=== PATIENT | male | born 1995 | race Caucasian/White ===

== ENCOUNTER 2019-04-28 19:15 | Inpatient (IN) | payer MEDICARE, MEDICAID ==
[~2019-04-28] VITALS: Ht 167.6 cm; Wt 84.5 kg
[2019-04-28 20:37] LABS: BASOPHILS # (AUTO) 0.1 X10'3 (0-0.2); BASOPHILS % (AUTO) 0.3 % (0-1); EOSINOPHILS # (AUTO) 0.1 X10'3 (0-0.9); EOSINOPHILS % (AUTO) 0.5 % (0-6); HEMATOCRIT 49.1 % (42.0-52.0); HEMOGLOBIN 16.9 g/dl (14.0-17.9); LYMPHOCYTES # (AUTO) 0.9 X10'3 (1.1-4.8); LYMPHOCYTES % (AUTO) 5.2 % (21-51); MEAN CORPUSCULAR HEMOGLOBIN 31.1 PG (27.0-31.0); MEAN CORPUSCULAR HGB CONC 34.4 g/dL (33.0-36.5); MEAN CORPUSCULAR VOLUME 90.3 FL (78-98); MEAN PLATELET VOLUME 8.1 FL (7.4-10.4); MONOCYTES # (AUTO) 1.6 X10'3 (0-0.9); MONOCYTES % (AUTO) 8.8 % (2-12); NEUTROPHILS # (AUTO) 15.3 X10'3 (1.8-7.7); NEUTROPHILS % (AUTO) 85.2 % (42-75); PLATELET COUNT 243 X10'3 (140-440); RED BLOOD COUNT 5.44 X10'6 (4.70-6.10); RED CELL DISTRIBUTION WIDTH 12.5 % (11.5-14.5); WHITE BLOOD COUNT 17.9 X10'3 (4.5-11.0)
[2019-04-28] MEDS ORDERED: normal saline 1000ml 1,000 ML IV ONE (20:55)
[2019-04-28] MEDS ORDERED: clindamycin 600mg/D5W 50ml 50 ML IV ONE (20:55)
[2019-04-28] MEDS ORDERED: ketorolac trometh. 30mg/ml inj. IV ONE (20:55)
[2019-04-28 20:56] LABS: PARTIAL THROMBOPLASTIN TIME 33 SECONDS (22-32)
[2019-04-28 21:09] LABS: ALANINE AMINOTRANSFERASE 30 U/L (12-78); ALBUMIN 4.1 G/DL (3.4-5.0); ALBUMIN/GLOBULIN RATIO 0.9 (1.1-1.5); ALKALINE PHOSPHATASE 117 IU/L (46-116); ANION GAP 13 (8-16); ASPARTATE AMINO TRANSFERASE 15 U/L (10-37); BILIRUBIN,TOTAL 1.1 MG/DL (0.1-1.0); BLOOD UREA NITROGEN 11 MG/DL (7-18); BUN/CREATININE RATIO 12.6 (5.4-32.0); C-REACTIVE PROTEIN 16.34 MG/DL (0.0-0.5); CALCIUM 9.1 MG/DL (8.5-10.1); CHLORIDE 98 MMOL/L (99-107); CREATININE 0.87 MG/DL (0.60-1.10); GLUCOSE 86 MG/DL (70-104); POTASSIUM 3.3 MMOL/L (3.5-5.1); SODIUM 136 MMOL/L (135-145); TOTAL CARBON DIOXIDE 25.2 MMOL/L (24-32); TOTAL PROTEIN 8.7 G/DL (6.4-8.2); eGFR > 90 ML/MIN
[2019-04-28] MEDS ORDERED: colchicine 0.6mg tablet PO ONE (21:20)
[2019-04-28 21:22] LABS: MONOTEST NEGATIVE (Neg)
[2019-04-28] MEDS ORDERED: LORazepam 2 mg/ml vial IV ONE (21:25)
[2019-04-28] MEDS ORDERED: aspirin 325mg tablet PO ONE (21:30)
[2019-04-28] MEDS ORDERED: iohexol 350MG/ML 100ml bottle IV ONE (21:37)
[2019-04-28] MEDS ORDERED: IBUP-1986 PO (21:53)
[2019-04-28] MEDS ORDERED: COLC0.6T69 PO (21:53)
[2019-04-28] MEDS ORDERED: CLIN150C8 PO (21:53)
[2019-04-29] VITALS (13 sets, daily range): BP systolic 99–126; BP diastolic 67–84
--- NOTE | 2019-04-29 01:15 | NUR ---
pt up to bathroom , ambulating with steady gait back to bed warm blanket offered lights dimmed iv patent
[2019-04-29] MEDS ORDERED: potassium Cl 20 mEq SR tablet PO PRN (01:20)
[2019-04-29] MEDS ORDERED: mag hydrox/Alum hydrox/simeth 30ml oral suspension PO PRN (01:20)
[2019-04-29] MEDS ORDERED: potassium CL 10mEq/100ml bag 100 ML IV PRN ×2 (01:20)
[2019-04-29] MEDS ORDERED: ondansetron/PF 4mg/2ml inj IV PRN (01:20)
[2019-04-29] MEDS ORDERED: acetaminophen 325mg tablet PO PRN (01:20)
[2019-04-29] MEDS ORDERED: magnesium hydroxide 30ml (MOM) UD suspension PO PRN (01:20)
[2019-04-29 01:32] LABS: URINE AMPHETAMINE SCREEN NEGATIVE (Neg); URINE BARBITUATE SCREEN NEGATIVE (Neg); URINE BENZODIAZEPINES SCREEN NEGATIVE (Neg); URINE CANNABINOID SCREEN POSITIVE (Neg); URINE COCAINE SCREEN NEGATIVE (Neg); URINE METHADONE SCREEN NEGATIVE (Neg); URINE OPIATE SCREEN NEGATIVE (Neg); URINE PHENCYCLIDINE SCREEN NEGATIVE (Neg)
[2019-04-29] MEDS: normal saline 1000ml 1,000 ML IV SCH ×2 (01:44→12:11)
[2019-04-29] MEDS: Melatonin 3mg tablet PO PRN ×2 (02:01→21:28)
[2019-04-29] MEDS: ibuprofen 200mg tablet PO SCH ×2 (02:09→08:18)
[2019-04-29] MEDS ORDERED: NO HOME MEDS (02:53)
--- NOTE | 2019-04-29 03:00 | NUR ---
Patient in room PCU 3018. I have received report from Tamika and had the opportunity to ask questions and assume patient care.
[2019-04-29] MEDS ORDERED: ibuprofen tablet 400 MG TABLET PO SCH (03:41)
[2019-04-29] MEDS: potassium Cl 20 mEq SR tablet PO PRN ×3 (04:02→14:04)
[2019-04-29] MEDS: acetaminophen 325mg tablet PO PRN ×2 (05:46→17:24)
[2019-04-29] MEDS ORDERED: LORazepam 1 MG tablet PO ONE (06:20)
--- NOTE | 2019-04-29 06:23 | NUR ---
Problems reprioritized. Patient report given, questions answered & plan of care reviewed with Lety.
--- NOTE | 2019-04-29 06:24 | NUR ---
Patient in room PCU 3018. I have received report from Al JACKSON and had the opportunity to ask questions and assume patient care.
[2019-04-29] MEDS: colchicine 0.6mg tablet PO SCH ×2 (08:17→21:10)
[2019-04-29] MEDS: clindamycin 150mg capsule PO SCH ×2 (08:17→17:21)
[2019-04-29] MEDS: K and/or MAG REPLACEMENT MC SCH (08:21)
--- NOTE | 2019-04-29 08:46 | NUR ---
3018B: Damion Cho: Critical trop of 16.78, EKG changes. Please adviseLety [phone]
[2019-04-29] MEDS ORDERED: heparin 10,000 units/1 ML INJ IV ONE (08:50)
[2019-04-29] MEDS ORDERED: heparin 10,000 units/1 ML INJ IV PRN (08:50)
[2019-04-29] MEDS: heparin 25,000 UNIT/250ml bag 250 ML IV SCH ×2 (09:27→14:12)
[2019-04-29] MEDS: carVEDilol 3.125mg tablet PO SCH ×2 (10:30→21:10)
[2019-04-29 10:42] LABS: PARTIAL THROMBOPLASTIN TIME 142 SECONDS (22-32)
[2019-04-29 11:00] LABS: BASOPHILS # (AUTO) 0.1 X10'3 (0-0.2); BASOPHILS % (AUTO) 0.3 % (0-1); EOSINOPHILS # (AUTO) 0.1 X10'3 (0-0.9); EOSINOPHILS % (AUTO) 0.3 % (0-6); HEMATOCRIT 44.1 % (42.0-52.0); HEMOGLOBIN 15.1 g/dl (14.0-17.9); LYMPHOCYTES # (AUTO) 0.9 X10'3 (1.1-4.8); LYMPHOCYTES % (AUTO) 5.9 % (21-51); MEAN CORPUSCULAR HEMOGLOBIN 30.8 PG (27.0-31.0); MEAN CORPUSCULAR HGB CONC 34.1 g/dL (33.0-36.5); MEAN CORPUSCULAR VOLUME 90.4 FL (78-98); MEAN PLATELET VOLUME 8.5 FL (7.4-10.4); MONOCYTES # (AUTO) 1.3 X10'3 (0-0.9); MONOCYTES % (AUTO) 7.9 % (2-12); NEUTROPHILS # (AUTO) 13.7 X10'3 (1.8-7.7); NEUTROPHILS % (AUTO) 85.6 % (42-75); PLATELET COUNT 231 X10'3 (140-440); RED BLOOD COUNT 4.88 X10'6 (4.70-6.10); RED CELL DISTRIBUTION WIDTH 12.5 % (11.5-14.5)
--- NOTE | 2019-04-29 11:04 | NUR ---
Critical PTT of 142. Results relayed to Placido MILLER. No new orders received. Will continue with protocol.
[2019-04-29 11:16] LABS: ALANINE AMINOTRANSFERASE 31 U/L (12-78); ALBUMIN 3.5 G/DL (3.4-5.0); ALBUMIN/GLOBULIN RATIO 0.9 (1.1-1.5); ALKALINE PHOSPHATASE 96 IU/L (46-116); ANION GAP 12 (8-16); ASPARTATE AMINO TRANSFERASE 103 U/L (10-37); BILIRUBIN,TOTAL 0.8 MG/DL (0.1-1.0); BLOOD UREA NITROGEN 13 MG/DL (7-18); BUN/CREATININE RATIO 19.4 (5.4-32.0); CALCIUM 8.5 MG/DL (8.5-10.1); CHLORIDE 103 MMOL/L (99-107); CREATININE 0.67 MG/DL (0.60-1.10); GLUCOSE 109 MG/DL (70-104); POTASSIUM 3.7 MMOL/L (3.5-5.1); SODIUM 137 MMOL/L (135-145); TOTAL CARBON DIOXIDE 22.4 MMOL/L (24-32); TOTAL PROTEIN 7.5 G/DL (6.4-8.2); eGFR > 90 ML/MIN
[2019-04-29] MEDS ORDERED: midazolam 2 mg/2 ml injection ONE ×2 (14:28→15:47)
[2019-04-29] MEDS ORDERED: nitroGLYCERIN-Tridil 50MG/D5W 250 ML IV ONE (14:28)
[2019-04-29] MEDS ORDERED: heparin 1,000unit/ml 10ml vial 10 ML ONE (14:28)
[2019-04-29] MEDS ORDERED: iohexol 350MG/ML 100ml bottle IV ONE (14:28)
[2019-04-29] MEDS ORDERED: LIDOcaine 1% (10mg/ml)w/preservative injection 20ml MDV ONE (14:28)
[2019-04-29] MEDS ORDERED: fentaNYL/PF 50MCG/1 ML 2ML syringe ONE (14:28)
[2019-04-29] MEDS ORDERED: iohexol 350 MG/ML 50ML vial IV ONE (14:28)
[2019-04-29] MEDS ORDERED: LIDOcaine/PRILOcaine 5gm cream TP ONE (14:30)
[2019-04-29] MEDS ORDERED: verapamil 2.5 mg/ml inj IV ONE (14:32)
--- NOTE | 2019-04-29 18:26 | NUR ---
Patient in room PCU 3018. I have received report from Lety and had the opportunity to ask questions and assume patient care.
--- NOTE | 2019-04-29 18:27 | NUR ---
Problems reprioritized. Patient report given, questions answered & plan of care reviewed with Al JACKSON.
--- NOTE | 2019-04-29 18:48 | NUR ---
[place] documentation: I have reviewed and agree with all interventions, assessments performed and documented by Fely JACKSON. [place] Medication Administration: For this medication-pass time frame, all medication were reviewed, dispensed, administered and documented per hospital policy by Fely JACKSON.
[2019-04-29] MEDS: lactobacillus rhamnosus 10,000 MMU CELLS/CAPSULE PO SCH (21:10)
[2019-04-30 00:30] VITALS: BP 99/72
[2019-04-30] MEDS: acetaminophen 325mg tablet PO PRN ×2 (01:04→13:49)
[2019-04-30 02:00] VITALS: BP 101/56
[2019-04-30 05:45] LABS: BASOPHILS # (AUTO) 0.1 X10'3 (0-0.2); BASOPHILS % (AUTO) 0.8 % (0-1); EOSINOPHILS # (AUTO) 0.2 X10'3 (0-0.9); HEMOGLOBIN 14.8 g/dl (14.0-17.9); LYMPHOCYTES # (AUTO) 1.8 X10'3 (1.1-4.8); LYMPHOCYTES % (AUTO) 21.6 % (21-51); MEAN CORPUSCULAR HEMOGLOBIN 31.3 PG (27.0-31.0); MEAN CORPUSCULAR HGB CONC 34.6 g/dL (33.0-36.5); MEAN CORPUSCULAR VOLUME 90.5 FL (78-98); MEAN PLATELET VOLUME 8.7 FL (7.4-10.4); MONOCYTES # (AUTO) 0.9 X10'3 (0-0.9); MONOCYTES % (AUTO) 10.4 % (2-12); NEUTROPHILS # (AUTO) 5.3 X10'3 (1.8-7.7); NEUTROPHILS % (AUTO) 64.2 % (42-75); PLATELET COUNT 227 X10'3 (140-440); RED BLOOD COUNT 4.75 X10'6 (4.70-6.10); RED CELL DISTRIBUTION WIDTH 12.6 % (11.5-14.5); WHITE BLOOD COUNT 8.3 X10'3 (4.5-11.0)
[2019-04-30 05:49] LABS: ALBUMIN 3.3 G/DL (3.4-5.0); ANION GAP 7 (8-16); BLOOD UREA NITROGEN 10 MG/DL (7-18); BUN/CREATININE RATIO 14.5 (5.4-32.0); CALCIUM 8.7 MG/DL (8.5-10.1); CHLORIDE 105 MMOL/L (99-107); CREATININE 0.69 MG/DL (0.60-1.10); GLUCOSE 87 MG/DL (70-104); POTASSIUM 4.5 MMOL/L (3.5-5.1); SODIUM 139 MMOL/L (135-145); TOTAL CARBON DIOXIDE 26.9 MMOL/L (24-32); eGFR > 90 ML/MIN
[2019-04-30 06:00] VITALS: BP 115/68
--- NOTE | 2019-04-30 06:29 | NUR ---
Problems reprioritized. Patient report given, questions answered & plan of care reviewed with
--- NOTE | 2019-04-30 06:45 | NUR ---
Patient in room PCU 3018. I have received report from Al JACKSON and had the opportunity to ask questions and assume patient care.
[2019-04-30] MEDS ORDERED: nicotine 7mg patch - 24hr TD SCH (08:00)
[2019-04-30] MEDS: K and/or MAG REPLACEMENT MC SCH (08:00)
[2019-04-30] MEDS: carVEDilol 3.125mg tablet PO SCH (08:36)
[2019-04-30] MEDS: clindamycin 150mg capsule PO SCH ×2 (08:36)
[2019-04-30] MEDS: lactobacillus rhamnosus 10,000 MMU CELLS/CAPSULE PO SCH (08:36)
[2019-04-30] MEDS: colchicine 0.6mg tablet PO SCH (08:36)
[2019-04-30 11:11] VITALS: BP 125/84
[2019-04-30] MEDS ORDERED: COL0.6T PO (11:27)
[2019-04-30] MEDS ORDERED: IBUP-1984 PO (11:27)
[2019-04-30] MEDS ORDERED: NICO-630 TD (11:27)
[2019-04-30] MEDS ORDERED: CLE150C PO (11:27)
--- NOTE | 2019-04-30 13:30 | NUR ---
discharge instructions reviewed and discharge packet given to patient, RX called in to [facility] on [address]
== END 2019-04-30 13:30 | disposition home or self-care (01) | DRG 281 ==
LOC: ER 19:16 → PCU 3S 04-29 02:58
PROVIDERS: ADMIT Hospitalist; ATTEND Family Medicine
PROC: 4A023N7 Measurement of Cardiac Sampling and Pressure, Left Heart, Percutaneous Approach (ICD-10-PCS; principal; 2019-04-29)
PROC: B2111ZZ Fluoroscopy of Multiple Coronary Arteries using Low Osmolar Contrast (ICD-10-PCS; 2019-04-29)
PROC: B2151ZZ Fluoroscopy of Left Heart using Low Osmolar Contrast (ICD-10-PCS; 2019-04-29)
DX: I21.4 Non-ST elevation (NSTEMI) myocardial infarction (principal); I30.9 Acute pericarditis, unspecified; E87.6 Hypokalemia; I25.10 Atherosclerotic heart disease of native coronary artery without angina pectoris; J02.0 Streptococcal pharyngitis; J02.9 Acute pharyngitis, unspecified; F17.200 Nicotine dependence, unspecified, uncomplicated; Z71.6 Tobacco abuse counseling; Z88.0 Allergy status to penicillin; Z79.82 Long term (current) use of aspirin; Z79.899 Other long term (current) drug therapy
CPT/HCPCS: 36415; 71045; 71275; 80048; 80053; 80305; 83605; 84484; 85025; 85347; 85610; 85651; 85730; 86140; 86308; 87081; 93005; 93306; 93458; 96365; 96375; 99152; 99153; 99285; A4620; C1760; C1769; C1794; G0378; J1644; J1885; J2001; J2060; J2250; J2405; J3010; J3490; J7030; Q9967